=== PATIENT | male | born 1930 | race Caucasian/White ===

== ENCOUNTER 2018-07-12 13:29 | Observation (INO) ==
--- NOTE | 2018-07-12 14:07 | History & Physical Report ---
Date of Encounter: 07/12/18 Time of Encounter: 14:07 24 Hour HP Update - Instructions Instructions: If the History and Physical is less than 30 days old and was completed prior to A.M. admission and or procedure and has NOT been updated on calendar day of procedure please complete this update prior to performing procedure. - Update Patient reports changes in Medical Condition: No Changes in examination, assessment, or condition: No Changes in Medication: No Preop tests/diagnostics Reviewed: Yes Surgery Remains Indicated: Yes Consent for Planned Operative Procedure(s) Verified: Yes - Pre-Operative Checklist Preoperative Checklist Indicated: Yes Prophylactic Antibiotic Ordered: Yes Home Medications Include Beta Pretty: No
--- NOTE | 2018-07-12 14:29 | Anesthesia Evaluation PreOp ---
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: Denies Any Significant HX Other Medical History: Denies Any Significant HX Anesthesia History: No Prior Anesthetic Complications, Past Anesthesia Alcohol Use: none Drug use: none Medications and Allergies Betamethasone Angélica 0.1% Crm [Valisone 0.1%] 15 appl TP DAILY PRN 07/12/18 [ History] Cholecalciferol (D-3) [Vitamin D] 1,000 unit PO DAILY 07/12/18 [History] Clopidogrel [Plavix] 75 mg PO DAILY 07/12/18 [History] Cyanocobalamin (Vitamin B-12) [Vitamin B12] 1,000 mcg PO DAILY 07/12/18 [History ] Dicyclomine [Bentyl] 10 mg PO DAILY PRN 07/12/18 [History] Furosemide [Lasix] 20 mg PO Q48H 07/12/18 [History] Furosemide [Lasix] 40 mg PO DAILY 07/12/18 [History] Pantoprazole Sodium [Protonix] 20 mg PO DAILY 07/12/18 [History] Potassium Chloride [Klor-Con 10] 10 meq PO DAILY 07/12/18 [History] Ranitidine HCl [Acid Loom Doffer] 150 mg PO BID 07/12/18 [History] Rivaroxaban [Xarelto] 20 mg PO DAILY 07/12/18 [History] Rosuvastatin Calcium [Crestor] 20 mg PO DAILY 07/12/18 [History] Tamsulosin [Flomax] 0.4 mg PO DAILY 07/12/18 [History] Tramadol HCl [Ultram] 50 mg PO DAILY 07/12/18 [History] 3 Allergy/AdvReac Type Severity Reaction Status Date / Time Penicillins Allergy Itching Verified 03/24/18 14:53 aspirin [ASA] AdvReac Gastrointestinal Verified 03/24/18 16:05 Upset duloxetine [From Cymbalta] AdvReac See Verified 03/24/18 16:05 Comments - Meds/Allergy Pre-op Review Medications Reviewed: Yes Allergies Reviewed: Yes Beta Blockers on Current Med List: No Anesthesia Results - Labs Laboratory Tests 06/06/18 06/06/18 16:03 16:03 Hgb 13.2 Hct 40.4 Plt Count 159 Sodium 141 Potassium 3.8 Chloride 109 H Carbon Dioxide 25 BUN 20 Creatinine 1.17 - Imaging EKG: report reviewed (AV pacer rhythm) Additional studies: EF 57%, no ischemia, continuously paced throughout stress test. Anesthesia Exam - HEENT Teeth: Missing (Has only 3 remaining teeth) Oral Opening: Greater than 3 - Cardiac Rhythm: Regular Murmur: None - Pulmonary Breath Sounds: bilateral Clear Respiratory Effort: Symmetrical Anesthesia Assess/Plan ASA Score: 3 Modified Ruchi Scale for Level of Consciousness: Cooperative, oriented, and tranquil Anesthetic Plan: General Monitoring Plan: Standard Monitors Recovery Plan: PACU (Discussed general anesthesia, agreed to proceed.)
[2018-07-12] MEDS: Ringers Solution, Lactated 1,000 ML IVC SCH ×2 (14:37→19:08)
[2018-07-12] MEDS ORDERED: CeFAZolin Syr 2,000MG/20 ML 2,000 MG/20 ML SYRINGE IVPB ONE (14:49)
[2018-07-12] MEDS ORDERED: *HR* Succinylcholine 200 MG/10 ML VIAL IVP ONE (15:37)
[2018-07-12] MEDS ORDERED: Dexamethasone 4 MG/ML VIAL ONE (15:37)
[2018-07-12] MEDS ORDERED: Lidocaine -MPF 4% 5 ML AMPUL ONE (15:37)
[2018-07-12] MEDS ORDERED: Ondansetron 4 MG/2 ML VIAL ONE (15:37)
[2018-07-12] MEDS ORDERED: *HR* FentaNYL (PF) 100 MCG/2 ML VIAL ONE (15:37)
[2018-07-12] MEDS ORDERED: *HR* Propofol 200 MG/20 ML VIAL IVP ONE (15:37)
[2018-07-12] MEDS ORDERED: Lidocaine -MPF 2% 2 ML VIAL ONE (15:37)
[2018-07-12] MEDS ORDERED: *HR* Rocuronium Bromide 50 MG/5 ML VIAL ONE (15:37)
[2018-07-12] MEDS ORDERED: EPHEDrine 50 MG/ML VIAL ONE (16:11)
[2018-07-12] MEDS ORDERED: *HR* OxyCODONE/APAP 5/325 TABLET PO PRN (16:31)
[2018-07-12] MEDS ORDERED: Ondansetron 4 MG/2 ML VIAL IVP ONE ×2 (16:31→18:25)
--- NOTE | 2018-07-12 16:34 | Operative Note ---
Date of procedure: 07/12/18 Pre-op diagnosis: Umbilical hernia Post-op diagnosis: same Procedure: Robotic umbilical hernia repair with 9 cm mesh Anesthesia: TERENCE Surgeon: Alhaji Ogden Was there an research study assistant present: Yes Maintenance Planning Clerk: Jing Begum Estimated blood loss (cc): 5 Specimen: 0 Condition: stable Disposition: same day Procedure in Detail: After informed consent, the patient was taken the operating room placed in supine position. After adequate sedation and anesthesia the patient's abdomen was prepped and draped. A proper timeout was performed. A 12 mm incision was made on the patient's left abdomen at the level of the umbilicus in the posterior axillary line. Two 8 mm cannulas were placed in the left upper quadrant and left lower quadrant. Once in place, a caduet grasper and robotic scissors were used to reduce the incarcerated tissue from the midline hernia. A 9 cm symbotex mesh was loaded into the abdomen. The robot was docked over the patient's right hip. The robotic arms were connected to the port sites. A robotic grasper and needle trailer truck driver was inserted. The mesh was then situated over the defect and it was sewn to the abdominal wall with an 0 ethibond suture in running fashion. Once completed, the needles were retrieved. The abdomen was deflated and the port sites were removed the 12 mm cannula site was closed with an 0 Vicryl suture in [id number] fashion. The skin was closed with 4- 0 Vicryl suture. Dermabond was placed. One half percent Marcaine 30 mL's were placed in the incision sites. The patient tolerated the procedure well. All instrument counts and needle counts were correct at the end of the case.
--- NOTE | 2018-07-12 16:37 | Discharge Summary ---
Outpatient Proc Discharge Plan - Plan Additional Instructions: Patient may have a regular diet. Patient may shower. Patient should avoid lifting anything heavier than 10 pounds for next 4 weeks. Patient follow-up in the office approximately 2 weeks. Prescriptions: HYDROcodone/Acet 5/325 mg [[place] 5-325 mg] 1 tab PO Q6H PRN 7 Days #14 tab PRN Reason: Pain Home Medications: Betamethasone Angélica 0.1% Crm [Valisone 0.1%] 15 appl TP DAILY PRN 07/12/18 [ History] Cholecalciferol (D-3) [Vitamin D] 1,000 unit PO DAILY 07/12/18 [History] Clopidogrel [Plavix] 75 mg PO DAILY 07/12/18 [History] Cyanocobalamin (Vitamin B-12) [Vitamin B12] 1,000 mcg PO DAILY 07/12/18 [History ] Dicyclomine [Bentyl] 10 mg PO DAILY PRN 07/12/18 [History] Furosemide [Lasix] 20 mg PO Q48H 07/12/18 [History] Furosemide [Lasix] 40 mg PO DAILY 07/12/18 [History] HYDROcodone/Acet 5/325 mg [[place] 5-325 mg] 1 tab PO Q6H PRN 7 Days #14 tab 07/12 [Rx] Pantoprazole Sodium [Protonix] 20 mg PO DAILY 07/12/18 [History] Potassium Chloride [Klor-Con 10] 10 meq PO DAILY 07/12/18 [History] Ranitidine HCl [Acid Gut Cleaner] 150 mg PO BID 07/12/18 [History] Rivaroxaban [Xarelto] 20 mg PO DAILY 07/12/18 [History] Rosuvastatin Calcium [Crestor] 20 mg PO DAILY 07/12/18 [History] Tamsulosin [Flomax] 0.4 mg PO DAILY 07/12/18 [History] Tramadol HCl [Ultram] 50 mg PO DAILY 07/12/18 [History]
[2018-07-12] MEDS: *HR* Morphine 2 MG/ML SYRINGE IVP PRN ×2 (16:51→17:08)
[2018-07-12] MEDS: *HR* OxyCODONE/APAP 5/325 TABLET PO PRN (17:19)
--- NOTE | 2018-07-12 19:40 | Anesthesia Evaluation Post Op ---
Date of Encounter: 07/12/18 Time of Encounter: 18:55 - Discharge PostOp Status: Transfer Patient to floor Anes Supervising Prov Stmt: PATIENT WAS SCHEDULED SDS. BEING ADMITTED SECONDARY POST OPERATIVE ABDOMINAL PAIN & DISTENTION. THE PATIENT HAD NAUSEA WELL WHICH HAS BEEN TREATED, AND SEEMS TO HAVE RESOLVED. ABDOMINAL EXAM REVEALS WHAT APPEARS TO BE A DISTENDED LOOP OF BOWEL ACROSS THE UPPER ABDOMEN. THERE IS GENERALIZED TENDERNESS TO PALPATION. BOWEL SOUNDS ARE HYPERACTIVE. THE SURGEON GROOVER OPERATOR IS AWARE AND WILL EXAMINE THE PATIENT WHO IS BEING ADMITTED BY THE SURGERY TEAM. THE S&S ARE CONCERNING FOR MECH BOWEL OBSTRUCTION. I HAVE COMMUNICATED MY CONCERN TO THE DR. LORENZ. Otherwise, the patient's vital signs have been reviewed. Patient is stable postoperatively and has adequately recovered from anesthesia. Patient is determined to have stable airway patency and respiratory function including respiratory rate and oxygen saturation. Patient has a stable heart rate, blood pressure and adequate hydration. Patients mental status is acceptable. Patient s temperature is appropriate. Pain and nausea are adequately controlled.
[2018-07-13] MEDS: Ondansetron 4 MG/2 ML VIAL IVP PRN ×2 (00:12→08:32)
[2018-07-13] MEDS: *HR* OxyCODONE/APAP 5/325 TABLET PO PRN ×2 (01:55→09:43)
[2018-07-13 10:01] VITALS: BP 155/69
--- NOTE | 2018-07-13 13:39 | Event Note ---
Date of Encounter: 07/13/18 Time of Encounter: 13:37 Patient s/p robotic assisted umbilical hernia repair yesterday with Dr. Ogden. Patient was admitted for observation due to abdominal pain, distention, and nausea. Today patient reports pain is well controlled with medication. Denies distention or bloating and is passing flatus. Tolerating diet without nausea or vomiting today. Vital signs have remained stable. Patient will be discharged this afternoon with follow up with outpatient surgery in 2 weeks. General Surgical Discharge Instructions 1. No pushing, pulling, or lifting greater than 10 lbs for 4 weeks (depending upon procedure). 2. You may shower beginning today, but no tub baths, soaking, or swimming for 2 weeks. 3. You may resume driving when you are off narcotics and are safe to react in a car. 4. Take ibuprofen every 8 hours for discomfort. If this does not relieve discomfort, you may take the as needed Percocet. Take narcotics as directed. Do not take more narcotics then directed and do not share your narcotics with any other person. Do not drink alcohol while on narcotics. 5. Take stool softeners (Colace) or a water based laxative (Miralax) while taking narcotics. You may hold for loose stools. 6. Report any fevers greater than 100.5F, increase abdominal discomfort, drainage that looks like pus, increased redness or pain at the surgical site, or any vomiting. 7. Report any pain in the calves, shortness of breath, or rapid heartbeat. 8. Follow-up in the office as directed. 9. If you were prescribed antibiotics, do not stop them without talking to your provider.
== END 2018-07-13 14:44 | disposition home or self-care (01) ==
LOC: 3ANU 13:29 → SAMDAY 13:29 → 3ANU 19:02 → SAMDAY 19:59
PROVIDERS: ADMIT Surgery; ATTEND Surgery